=== PATIENT | male | born 1985 | race Caucasian/White ===

== ENCOUNTER 2020-12-11 18:28 | Emergency (ER) | payer SELFPAY ==
--- NOTE | 2020-12-11 19:42 | EDM.PDOC ---
ED HPI GENERAL MEDICAL PROBLEM - General Chief Complaint: Back Pain or Injury Stated Complaint: KIDNEY PAIN Time Seen by Provider: 12/11/20 19:01 - History of Present Illness INITIAL COMMENTS - FREE TEXT/NARRATIVE: History of present illness: [] Patient has intermittent pain in the left flank. Now radiates to the abdomen. 4 days ago he got it after doing yard work. He was not exceptionally heavy yard work. He felt like he strained his back. It seems like at times it was worse with movement. Now it sometimes comes on with movement sometimes comes out when he is doing nothing at all. The pain now radiates to the left hypogastrium and left upper quadrant but not to his groin. Is not associated with diaphoresis or nausea. Review of systems: As per history of present illness and below otherwise all systems reviewed and negative. Past medical history: As per history of present illness and as reviewed below otherwise noncontributory. Surgical history: As per history of present illness and as reviewed below otherwise noncontributory. Social history: No reported history of drug or alcohol abuse. Family history: As per history of present illness and as reviewed below otherwise noncontributory. Physical exam: Constitutional - well developed, well-nourished and in no acute distress HEENT - normocephalic, no evidence of trauma - external nose and mouth normal - no mass in neck and no JVD - mucosae moist EYES - full EOM, PERRL, no icterus - no evidence of inflammation, injection, or drainage Respiratory - no respiratory distress, equal bilateral expansion, lungs clear to auscultation and no abnormal lung sounds Cardiovascular - Regular Rhythm with S1 and S2 appreciated and no murmur, gallop or rub. GI - abdomen soft without distension or organomegaly - normal bowel sounds - no guard or rebound Musculoskeletal no gross deformity of long bones or joints - no tenderness, swelling or edema Neurologic - Alert and oriented times four - CN II-XII grossly intact - motor sensory and coordination symmetrically normal Psychiatric - appropriate mood and affect with normal thought content Hematologic - No petechiae or purpura - mucosa appropriate color and sclera not pale - normal nail bed color and refill Integument - no rash or evidence of trauma - normal turgor Diagnostics: [] Therapeutics: [] Impression: [] Plan: [] Definitive disposition and diagnosis as appropriate pending reevaluation and review of above. Left Middle Back Pain Score (Numeric/FACES): 2 - Related Data Allergies Allergy/AdvReac Type Severity Reaction Status Date / Time No Known Allergies Allergy Verified 12/11/20 19:32 Home Meds: Home Meds Cyclobenzaprine [Flexeril] 10 mg PO TID PRN #12 tab 12/11/20 [Rx] ED ROS GENERAL - Review of Systems Review Of Systems: Comprehensive ROS is negative, except as noted in HPI. ED EXAM, GENERAL - Physical Exam Exam: See Below Free Text/Narrative:: My physical exam is in the HPI Course - Vital Signs Last Recorded V/S: Last Vital Signs Temp 36.3 C 12/11/20 20:22 Pulse 84 12/11/20 20:22 Resp 20 12/11/20 20:22 BP 117/82 12/11/20 20:22 Pulse Ox 98 12/11/20 20:22 - Orders/Labs/Meds Labs: Laboratory Tests 12/11/20 Range/Units 19:30 Urine Color YELLOW Urine Appearance CLEAR Urine pH 6.0 (5.0-8.0) Ur Specific [place] 1.025 (1.001-1.035) Urine Protein NEGATIVE (NEGATIVE) mg/dL Urine Glucose (UA) NEGATIVE (NEGATIVE) mg/dL Urine Ketones NEGATIVE (NEGATIVE) mg/dL Urine Occult Blood NEGATIVE (NEGATIVE) Urine Nitrite NEGATIVE (NEGATIVE) Urine Bilirubin NEGATIVE (NEGATIVE) Urine Urobilinogen 1.0 (<2.0) EU/dL Ur Leukocyte Esterase NEGATIVE (NEGATIVE) Departure - Departure Time of Disposition: 20:53 Disposition: Home, Self-Care 01 Condition: Good Clinical Impression: Low back strain - Discharge Information Prescriptions: Cyclobenzaprine [Flexeril] 10 mg PO TID PRN #12 tab PRN Reason: Muscle Spasm - Painful Instructions: Muscle Strain, [id number], Back Injury Prevention, [id number] Referrals: PCP,None [Primary Care Provider] - Forms: ED Department Discharge Additional Instructions: [id number] ibuprofen or naproxen are recommended along the muscle relaxer as well. Anyone with back pain needs to return immediately if they lose control of their bowel or bladder or have numbness in her buttocks or numbness or weakness in her lower extremities. [facility] - Primary Care [address] [place] [address] [id number] [facility] [address] [place] [address] The following information is given to patients seen in the emergency department who are being discharged to home. This information is to outline your options for follow-up care. We provide all patients seen in our emergency department with a follow-up referral. The need for follow-up, as well as the timing and circumstances, are variable depending upon the specifics of your emergency department visit. If you don't have a primary care physician on staff, we will provide you with a referral. We always advise you to contact your personal physician following an emergency department visit to inform them of the circumstance of the visit and for follow-up with them and/or the need for any referrals to a consulting specialist. The emergency department will also refer you to a specialist when appropriate. This referral assures that you have the opportunity for follow-up care with a specialist. All of these measure are taken in an effort to provide you with optimal care, which includes your follow-up. Under all circumstances we always encourage you to contact your private physician who remains a resource for coordinating your care. When calling for follow-up care, please make the office aware that this follow-up is from your recent emergency room visit. If for any reason you are refused follow-up, please contact the [facility] Emergency Department at and asked to speak to the emergency department charge nurse. Sepsis Event Note (ED) - Evaluation Sepsis Screening Result: No Definite Risk - Focused Exam Vital Signs: Vital Signs Temp Pulse Resp BP Pulse Ox 12/11/20 20:22 36.3 C 84 20 117/82 98 12/11/20 19:26 36.4 C 72 18 116/71 100
--- NOTE | 2020-12-11 20:42 | CT ---
INDICATION: Left flank pain TECHNIQUE: CT abdomen and pelvis without contrast. COMPARISON: None available FINDINGS: Lower chest: Unremarkable. Liver: Hepatic steatosis. Spleen: Unremarkable. Pancreas: Unremarkable. Gallbladder and bile ducts: Apparent subtle ill-defined reticular densities in the partially contracted gallbladder could represent sludge, poorly calcified gallstones or artifact. Adrenal glands: Unremarkable. Kidneys: No hydronephrosis. Miniscule nonobstructive right renal upper pole calcifications. No discrete ureteral calcifications. GI tract: No bowel obstruction. Normal appendix. Scattered colonic diverticula without diverticulitis. Mild to moderate colonic stool. Vascular structures: Unremarkable. Lymph nodes: Unremarkable. Miscellaneous: No free fluid or free air. Fat containing umbilical and inguinal hernias. Pelvic Organs: Bladder wall thickening, partially related to under distention. No bladder calcifications. A grossly unremarkable prostate. Bones: Unremarkable for age. IMPRESSION: No obstructive uropathy. Miniscule nonobstructive right renal calcifications. Bladder wall thickening, partially related to under distention, however suggestive of cystitis. Hepatic steatosis. Please note that all CT scans at this facility use dose modulation, iterative reconstruction, and/or weight-based dosing when appropriate to reduce radiation dose to as low as reasonably achievable. Dictated by Freeman Michael MD @ 12/11/2020 8:40:[address] Freeman Michael @ Dec 11 2020 8:40PM
== END 2020-12-11 21:09 | disposition home or self-care (01) ==
LOC: MW.ED 18:28
DX: S39.012A Strain of muscle, fascia and tendon of lower back, initial encounter (principal); X58.XXXA Exposure to other specified factors, initial encounter; Y99.0 Civilian activity done for income or pay
CPT/HCPCS: 74176; 74176-26; 81003; 99284-25